=== PATIENT | female | born 1950 | race Caucasian/White ===

== ENCOUNTER 2019-05-01 08:26 | Inpatient (IN) | payer MEDICARE, BC ==
[2019-05-01] MEDS ORDERED: Scopolamine 1.5 MG Transdermal Patch TOP ONE (09:15)
[2019-05-01] MEDS ORDERED: Acetaminophen 500 MG Tab PO ONE (09:15)
[2019-05-01] MEDS ORDERED: Dextrose 5%-Lactated Ringers 1,000 ML IV SCH (09:30)
[2019-05-01] MEDS ORDERED: Ropivacaine 34 ML, dexAMETHasone 8 MG, EPINEPHrine 0.4 MG, Sodium Chloride 0.9% 43.6 ML NERVRT SCH ×4 (10:30)
[2019-05-01] MEDS ORDERED: Ketamine 50 MG in Sodium Chloride 0.9% 49.5 ML IV SCH (10:30)
[2019-05-01] MEDS ORDERED: Ketamine 500 MG/5 ML MDV IV SCH (10:30)
[2019-05-01] MEDS ORDERED: Ondansetron 4 MG/2 ML SDV ONE (10:43)
[2019-05-01] MEDS ORDERED: Rocuronium 50 MG/5 ML Vial ONE (10:43)
[2019-05-01] MEDS ORDERED: Propofol 200 MG/20 ML SDV ONE (10:43)
[2019-05-01] MEDS ORDERED: fentaNYL 250 MCG/5 ML SDV ONE (10:43)
[2019-05-01] MEDS ORDERED: Glycopyrrolate 0.2 MG/ML 5 ML MDV ONE (10:43)
[2019-05-01] MEDS ORDERED: Neostigmine Methylsulfate 1 MG/ML 5 ML Syringe ONE (10:43)
[2019-05-01] MEDS ORDERED: Dexamethasone 4 MG/ML SDV ONE (10:43)
[2019-05-01] MEDS: Levofloxacin/Dextrose 5%-Water 500 MG in Premix Bag 1 BAG IV ONE ×2 (12:07→14:50)
[2019-05-01] MEDS ORDERED: Meropenem 500 MG SDV ONE (12:09)
[2019-05-01] MEDS ORDERED: Lactated Ringers 1,000 ML ONE (12:32)
[2019-05-01] MEDS ORDERED: HYDROmorphone/Normal Saline 15 MG/30 ML PCA IV PRN (13:15)
[2019-05-01] MEDS ORDERED: Naloxone 0.4 MG/ML SDV IVPUSH PRN (13:15)
[2019-05-01] MEDS ORDERED: hydrOXYzine HCl 100 MG/2 ML SDV IM PRN (15:29)
[2019-05-01] MEDS ORDERED: Ondansetron 4 MG/2 ML SDV IVPUSH PRN (15:29)
[2019-05-01] MEDS: Acetaminophen 325 MG Tab PO SCH ×2 (16:57→22:16)
[2019-05-01] MEDS ORDERED: Lactated Ringers 500 ML IV ONE (17:15)
[2019-05-01] MEDS: Belladonna Alkaloids/Opium 16.2-30 MG Supp RECTAL PRN (17:53)
[2019-05-01] MEDS: VERIFY SCOP PATCH TOP SCH (18:51)
[2019-05-01] MEDS: Dextrose 5%-Lactated Ringers 1,000 ML IV SCH (20:26)
[2019-05-01] MEDS ORDERED: Lactated Ringers 500 ML IV SCH (23:45)
[2019-05-02] MEDS: Dextrose 5%-Lactated Ringers 1,000 ML IV SCH ×3 (02:11→19:36)
[2019-05-02] MEDS: Acetaminophen 325 MG Tab PO SCH ×4 (04:19→21:23)
[2019-05-02] MEDS ORDERED: Triamcinolone Acetonide 0.1% Oint 15 GM Tube TOP PRN (07:43)
--- NOTE | 2019-05-02 08:52 | PN ---
DATE OF SERVICE: 05/02/2019 SUBJECTIVE: Anneliese is postoperative day #1. She states her pain is controlled. She has some pressure feeling in her low pelvic area, which she attributes more to the James catheter. She has been up ambulating. Vital signs have been stable. She did receive a bolus of lactated Ringer's for low urinary output. REVIEW OF SYSTEMS: Remainder of review of systems negative for any pertinent positives and negatives. OBJECTIVE: GENERAL: Anneliese Wells is a 69-year-old female. VITAL SIGNS: TPR is 98.7, 70, 16, blood pressure 109/44. HEENT: Negative. NECK: Supple. HEART: Regular rate and rhythm. LUNGS: Clear. ABDOMEN: Dressings dry and intact. Abdominal binder is on. KOBY drain is draining 25 mL of a light pink drainage. James catheter is intact. Urine output via James catheter 579. ASSESSMENT: Exploratory laparotomy with: 1. Total abdominal hysterectomy, bilateral salpingo-oophorectomy with urethropexy, transabdominal colpopexy, fulguration of endometriosis, and mobilization of omentum into pelvis for uterine prolapse and pelvic endometriosis. Date of surgery: 05/01/2019. Surgeon: Logan Youngblood MD. PLAN: 1. Decrease IV to 100 mL per hour. 2. Full liquid diet. 3. Discontinue James catheter on 05/03/2019 at 0500. 4. May shower. 5. Good pulmonary toilet. 6. We will evaluate p.r.n. or in a.m. Jillian Cadet PA-C /[id number]
[2019-05-02] MEDS ORDERED: [UNRECOGNIZED DRUG - OTHER] PO SCH (09:00)
[2019-05-02] MEDS ORDERED: LORazepam 1 MG Tab PO SCH (09:00)
[2019-05-02] MEDS ORDERED: Sennosides 8.6 MG Tab PO SCH (09:00)
[2019-05-02] MEDS ORDERED: Non-Formulary Medication 1 Each (Multivitamin [Multi-Vitamin Daily] 1 TAB) PO SCH (09:00)
[2019-05-02] MEDS ORDERED: Non-Formulary Medication 1 Each (Fluoxetine [Prozac] 30 MG) PO SCH (09:00)
[2019-05-02] MEDS: Folic Acid 1 MG Tab PO SCH (09:22)
[2019-05-02] MEDS: VERIFY SCOP PATCH TOP SCH (09:23)
[2019-05-02] MEDS: Hydrochlorothiazide/Triamterene 25-37.5 Tab PO SCH (09:23)
[2019-05-02] MEDS: FLUoxetine 20 MG, FLUoxetine 10 MG PO SCH ×2 (09:23)
[2019-05-02] MEDS: Multivitamins with Iron/Calcium/Folic Acid/Minerals Tab PO SCH (09:24)
[2019-05-02] MEDS: Levofloxacin/Dextrose 5%-Water 500 MG in Premix Bag 1 BAG IV SCH (12:38)
[2019-05-02] MEDS: Belladonna Alkaloids/Opium 16.2-30 MG Supp RECTAL PRN (19:48)
[2019-05-02] MEDS: LORazepam 1 MG Tab PO PRN (21:23)
[2019-05-03] MEDS: Acetaminophen 325 MG Tab PO SCH ×5 (04:14→21:06)
[2019-05-03] MEDS: Dextrose 5%-Lactated Ringers 1,000 ML IV SCH ×2 (04:19→15:52)
[2019-05-03] MEDS ORDERED: HYDROmorphone 2 MG Tab PO PRN (08:01)
[2019-05-03] MEDS ORDERED: [UNRECOGNIZED DRUG - REMARK] TOP SCH (09:00)
[2019-05-03] MEDS: Hydrochlorothiazide/Triamterene 25-37.5 Tab PO SCH (09:42)
[2019-05-03] MEDS: Folic Acid 1 MG Tab PO SCH (09:42)
[2019-05-03] MEDS: FLUoxetine 20 MG, FLUoxetine 10 MG PO SCH ×2 (09:43)
[2019-05-03] MEDS: Multivitamins with Iron/Calcium/Folic Acid/Minerals Tab PO SCH (09:43)
[2019-05-03] MEDS: Levofloxacin/Dextrose 5%-Water 500 MG in Premix Bag 1 BAG IV SCH (13:21)
[2019-05-04] MEDS: Dextrose 5%-Lactated Ringers 1,000 ML IV SCH (01:58)
[2019-05-04] MEDS: Acetaminophen 325 MG Tab PO SCH ×3 (04:34→16:08)
[2019-05-04] MEDS: Folic Acid 1 MG Tab PO SCH (08:31)
[2019-05-04] MEDS: FLUoxetine 20 MG, FLUoxetine 10 MG PO SCH ×2 (08:31)
[2019-05-04] MEDS: Hydrochlorothiazide/Triamterene 25-37.5 Tab PO SCH (08:31)
[2019-05-04] MEDS: Bisacodyl 5 MG Tab PO SCH ×2 (08:31→20:12)
[2019-05-04] MEDS: Magnesium Hydroxide 400 MG/5 ML Susp 30 ML Cup PO SCH ×2 (08:32→20:12)
[2019-05-04] MEDS: Multivitamins with Iron/Calcium/Folic Acid/Minerals Tab PO SCH (08:33)
[2019-05-04] MEDS: LORazepam 1 MG Tab PO PRN ×2 (10:37→20:12)
[2019-05-05] MEDS: Acetaminophen 325 MG Tab PO SCH (03:44)
--- NOTE | 2019-05-05 07:52 | PN ---
DATE OF SERVICE: 05/03/2019 SUBJECTIVE: The patient was somewhat confused overnight, but otherwise vital signs have been stable. Her bladder catheter came out today, and she did have some incontinence. We will get a post void residual to make sure we are not dealing with any overflow incontinence. If the patient continues to have the issues of incontinence, we may need to add some Ditropan or something in that area to decrease the bladder spasticity. Otherwise, she did move her bowels and go up to a regular diet, continue to maximize activity, and will work with pulmonary toilet. Logan Youngblood MD /[id number]
[2019-05-05] MEDS: Multivitamins with Iron/Calcium/Folic Acid/Minerals Tab PO SCH (08:01)
[2019-05-05] MEDS: Folic Acid 1 MG Tab PO SCH (08:01)
[2019-05-05] MEDS: Hydrochlorothiazide/Triamterene 25-37.5 Tab PO SCH (08:01)
[2019-05-05] MEDS: FLUoxetine 20 MG, FLUoxetine 10 MG PO SCH ×2 (08:01)
--- NOTE | 2019-05-05 09:05 | PN ---
DATE OF SERVICE: 05/04/2019 SUBJECTIVE: The patient has been afebrile with stable vital signs. Her mental status appears to have cleared now. Her bladder spasticity also appears to be improving. She is beginning to be able to hold onto some urine without the urgency type phenomenon. We will give her some bowel stimulation today and probably home tomorrow. Logan Youngblood MD /[id number]
--- NOTE | 2019-05-05 09:50 | DISCH ---
ADMISSION DIAGNOSES: 1. Uterine prolapse. 2. Status post laparoscopic gastric band. 3. Psoriasis. 4. Essential hypertension. 5. Iron deficiency anemia. 6. Depression. DISCHARGE DIAGNOSES: Exploratory laparotomy with total abdominal hysterectomy, bilateral salpingo-oophorectomy, urethropexy, transabdominal colpopexy, fulguration of endometriosis, and mobilization of omentum into pelvis for uterine prolapse and pelvic endometriosis. Date of surgery: 05/01/2019. Surgeon: Logan Youngblood MD. HISTORY: Anneliese Wells is a pleasant 69-year-old female with symptomatic history of uterine prolapse. After preoperative evaluation and discussion of possible risks and possible complications, she wished to proceed with surgical procedure. HOSPITAL COURSE: Anneliese had her surgery on 05/01/2019. She had no operative complications. On postoperative day #1, her James catheter was left in. She was started on a full liquid diet. On postoperative day #2, her James was discontinued. She did have some bladder spasms and was started on B and O suppositories and these did resolve. Her pain was managed on postoperative day #3. Her activity was good. She continued to improve. She was given bowel stimulation. Her IV was discontinued. KOBY drain was discontinued. On postoperative day #4, she was able to be discharged to home without any complications. PHYSICAL EXAMINATION: GENERAL: Robert Wells is a 69-year-old female. VITAL SIGNS: Height is 5 feet 4 inches, weight is 148 pounds. TPR is 98.5, 66, 18, blood pressure 101/43. HEENT: Negative. NECK: Supple. HEART: Regular rate and rhythm. LUNGS: Clear. ABDOMEN: Low lying incision is negative. Steri-Strips are on. Abdominal binder is on. EXTREMITIES: Without peripheral edema. DISPOSITION: Discharged to home. CONDITION: Stable and improving. FOLLOWUP APPOINTMENT: On 05/12/2019 at 11 a.m. with Jillian Cadet PA-C. HOME MEDICATIONS: 1. Dilaudid 2 mg one every 6 hours p.r.n. pain, #20. 2. Tylenol 650 mg every 6 hours p.r.n. pain. She is to resume her home medications: 1. Viactiv chews two tablets daily. 2. B12 1000 mcg IM every 30 days. 3. Fluoxetine 30 mg oral daily. 4. Vitron-C one tablet oral daily. 5. Folic acid 1 mg oral daily. 6. Ativan 1 mg oral 3 times a day p.r.n. 7. Trexall/methotrexate 7.5 mg every 7 days. 8. Multivitamin one tablet oral daily. 9. Senna 8.6 mg oral daily. 10.Kenalog 0.1% ointment topical twice daily. 11.Triamcinolone/hydrochlorothiazide 75/50 0.5 mg oral daily. 12.Vitamin B complex one daily. DIET: Usual diet as tolerated. Drink 8 to 10 glasses of water a day. ACTIVITY: No lifting greater than 10 pounds for 6 weeks. Other activity: Walk at least 6 times daily, distance and time as tolerated. Driving: Do not drive for 1 week and when on pain medication. Shower/bathing: May shower. DISCHARGE INSTRUCTIONS: Notify provider if any fever, increased pain, nausea, vomiting. Keep site clean and dry. Wear abdominal binder for 2 weeks and as tolerated. SPECIAL INSTRUCTIONS: Use incentive spirometer 10 times every hour while awake.
--- NOTE | 2019-05-19 09:08 | OR ---
DATE OF PROCEDURE: 05/01/2019 SURGEON: Logan Youngblood MD PREOPERATIVE DIAGNOSIS: Uterine prolapse. POSTOPERATIVE DIAGNOSES: 1. Uterine prolapse. 2. Pelvic endometriosis. OPERATIVE PROCEDURES: Exploratory laparotomy with: 1. Total abdominal hysterectomy with bilateral salpingo-oophorectomy with a suprapubic urethropexy (91347). 2. Transabdominal colpopexy (61389). 3. Fulguration of pelvic endometriosis (25451). 4. Mobilization of omentum to limit adhesion formation between pelvic and abdominal wall and underlying viscera (87561). ANESTHESIA: General. HEEL DIPPER: Jillian Cadet PA-C. INDICATIONS FOR PROCEDURE: This is a 69-year-old, presenting with problems with ongoing uterine prolapse. She has been using a pessary to maintain the uterus in position and, at this point, is opting to have a total abdominal hysterectomy and bilateral salpingo- oophorectomy and transabdominal colpopexy for treatment of that condition. The fact that we typically add a suprapubic urethropexy to this procedure, so as to avoid problems with stress incontinence postoperatively with the urethra being somewhat fixed in a straightened out position with a colpopexy, was gone over. Otherwise potential risks including bleeding, infection, injury to underlying viscera, problems with urinary incontinence or retention were all reviewed, and the patient wishes to proceed. DETAILS OF PROCEDURE: The patient was taken to the operating room, and after general endotracheal anesthesia was induced, James catheter was inserted and the abdomen was prepped and draped. A transverse Pfannenstiel-type incision was made and carried down through the skin and subcutaneous tissue and through the anterior rectus sheath. Subrectus sheath flaps were then raised superiorly and inferiorly, and the midline peritoneum was divided. Upon entering the peritoneal cavity, the patient was noted to have three areas of focal endometriosis on the urinary bladder anterior to the uterus. These were fulgurated with electrocautery. The size of these nodules was in the range of 1 to 2 mm. At this point, the peritoneal reflection of the bladder on the uterus was divided and the bladder dissected down onto the upper vaginal cuff. The patient being menopausal, both ovaries and tubes were removed, and the infundibulopelvic, broad and round ligaments were then divided with DAMIEN richie, and the cardinal ligaments were then similarly divided with DAMIEN stapler. The vaginal cuff was then divided just below the cervix, and the specimen consisting of the uterus and both tubes and ovaries was delivered from the field. The vaginal cuff closure was accomplished with initial sutures to the uterosacral ligament using #1 Vicryl stitch, then uniting these as they were stitched from each side toward the midline. At this point, the Prolene mesh used for the colpopexy was cut. This was a strip with a diameter of 2 cm in width. This was initially fixed to the posterior aspect of the vaginal cuff with some 3-0 Prolene stitch and then the very apex of the vaginal cuff, a TA 30 stapler was used to fix the mesh to the uppermost aspect of the vaginal cuff. An incision was then made in the peritoneum over the sacral promontory, and the retroperitoneal tunnel was then taken downward to the point just above the vaginal cuff where a second open in the peritoneum was made. The mesh was then pulled up through that, thus pulling the vaginal cuff superiorly with the mesh being held in a fairly firm tension. The mesh was then affixed with titanium tacking screws to the sacral promontory, thus fixing the vaginal cuff in a satisfactory position. At this point, the peritoneum over the sites where the mesh had been pulled through was closed with [id number] stitches of 3-0 Vicryl stitch, so as to retroperitonealize the mesh. Prior to that, the area had been irrigated with meropenem-containing saline solution. The point where the suprapubic urethropexy was then placed was established with dissection of the bladder off the retropubic space. With the urinary bladder catheter being pulled downward, the paravaginal fascia adjacent to the urethrovesical junction was then identified, and on each side 2 cm lateral to the urethrovesical junction, [id number] stitches of #1 Vicryl stitch were placed. Once these were in position, a stitch was then also placed through the periosteum of the pubic bone overlying that, and when pulled up and tied, this created an obvious elevation of the urethrovesical junction. The bladder catheter was confirmed to be adequately mobile within that elevated area, and at that point, no further problems were noted. A Negro-Urias drain was then taken through a stab wound in the right lateral abdomen and taken down into the area of the vaginal cuff closure. To minimize problems with adhesion formation between the small bowel, underlying viscera, pelvic and abdominal dwyer, the omentum was then tacked down to the area of the urinary bladder just anterior to the vaginal cuff with some 0 Vicryl stitch. The midline peritoneum was then approximated with a #2 Vicryl stitch and the anterior rectus sheath was also closed with 2-0 Vicryl stitch. The subcutaneous tissue was then approximated with some 3-0 Vicryl stitch and the skin with 4-0 Vicryl subcuticular stitch. Steri-Strips were applied. The patient was taken to the recovery room in satisfactory condition. Physician diploma medical assistant, Jillian Cadet, played an essential role in assisting in this case, helping to position the patient, retract structures as needed, as well as suturing and cutting sutures when indicated. Her presence improved patient safety and decreased the operative time. Logan Youngblood MD /[id number]
== END 2019-05-05 08:53 | disposition home or self-care (01) | DRG 743 ==
LOC: JP.SDSSCHI 08:26 → JP.SDS 08:26 → EDSTATUS 13:30 → JP.MS 14:20
PROVIDERS: ADMIT Surgery; ATTEND Surgery
PROC: 0WUF07Z Supplement Abdominal Wall with Autologous Tissue Substitute, Open Approach (ICD-10-PCS; principal; 2019-05-01)
PROC: 0USG0ZZ Reposition Vagina, Open Approach (ICD-10-PCS; principal; 2019-05-01)
PROC: 0TSD0ZZ Reposition Urethra, Open Approach (ICD-10-PCS; principal; 2019-05-01)
PROC: 0D5W0ZZ Destruction of Peritoneum, Open Approach (ICD-10-PCS; principal; 2019-05-01)
PROC: 0UT90ZZ Resection of Uterus, Open Approach (ICD-10-PCS; principal; 2019-05-01)
PROC: 0UT70ZZ Resection of Bilateral Fallopian Tubes, Open Approach (ICD-10-PCS; principal; 2019-05-01)
PROC: 0UT20ZZ Resection of Bilateral Ovaries, Open Approach (ICD-10-PCS; principal; 2019-05-01)
DX: N81.4 Uterovaginal prolapse, unspecified (principal); N80.3 Endometriosis of pelvic peritoneum; I10 Essential (primary) hypertension; L40.9 Psoriasis, unspecified; D50.9 Iron deficiency anemia, unspecified; F32.9 Major depressive disorder, single episode, unspecified; F41.9 Anxiety disorder, unspecified; Z79.899 Other long term (current) drug therapy
CPT/HCPCS: 51798; 88305; 94762; A9270-GY; C1713; C1781; J0171; J1100; J1170; J1956; J2185; J2405; J2704; J2710; J2795; J3010; J3410; J3490; J7042; J7050; J7120

== ENCOUNTER 2024-01-28 09:50 | Day surgery (SDC) | payer MEDICARE, BC ==
[2024-01-28] MEDS: Lactated Ringers 1,000 ML IV SCH (10:30)
[2024-01-28] MEDS ORDERED: fentaNYL 50 MCG/ML SDV ONE (12:32)
[2024-01-28] MEDS ORDERED: Propofol 200 MG/20 ML SDV ONE (12:32)
== END 2024-01-28 14:56 | disposition home or self-care (01) ==
LOC: JP.SDS 09:50
PROVIDERS: ATTEND Student in an Organized Health Care Education/Training Program
DX: K57.30 Diverticulosis of large intestine without perforation or abscess without bleeding (principal); R19.5 Other fecal abnormalities; I10 Essential (primary) hypertension; Z79.899 Other long term (current) drug therapy; Z88.1 Allergy status to other antibiotic agents
CPT/HCPCS: 45378; J2704; J3010; J7120